=== PATIENT | female | born 1950 | race Caucasian/White ===

== ENCOUNTER 2024-06-23 10:35 | Emergency (ER) | payer MEDICARE, SELFPAY ==
--- NOTE | 2024-06-23 11:12 | XR_ITS ---
Examination: AP chest single view Technique one AP upright portable chest single view Exam date and time: June 23, 2024 1137 hours Comparison August 14, 2019 INDICATIONS: Coughing today. FINDINGS: Normal heart size Significant hyperexpansion Mild accentuation basilar bronchovascular markings No lobar pneumonia Prominent osteopenia IMPRESSION: COPD Mild basilar bronchitis pattern
[2024-06-23 11:13] VITALS: BP 114/82; PULSE 84; RESP 17; TEMP 37; O2SAT 95; BMI 20.5
--- NOTE | 2024-06-23 11:13 | PD.EDRME ---
Rapid Medical Screening Exam RME Arrival date/time: 06/23/24 10:35 74-year-old female presents to the emergency department today stating she test positive for COVID-19 patient with generalized weakness and fatigue as well as diarrhea Chief Complaint: Flu Like Symptoms Time Seen by Provider: 06/23/24 10:51
[2024-06-23 11:46] LABS: Basophils % (Auto) 1 % (0-2.5); Eosinophils % (Auto) 1 % (0-10); Hematocrit 44.4 % (36.0-46.0); Hemoglobin 14.9 g/dL (12.0-16.0); Immature Granulocytes % (Auto) 0 % (0-0); Immature Granulocytes Auto 0.01 Thou/mm3 (0.00-0.00); Lymphocytes # (Auto) 1.8 Thou/mm3 (1.0-4.8); Lymphocytes % (Auto) 42 % (10-50); Mean Corpuscular HGB Conc 33.6 g/dl (31.0-37.0); Mean Corpuscular Hemoglobin 31.4 pg (25.0-35.0); Mean Corpuscular Volume 94 fL (80-100); Monocytes # (Auto) 0.5 Thou/mm3 (0.0-0.8); Monocytes % (Auto) 12 % (0-12); Neutrophils # (Auto) 1.9 Thou/mm3 (1.8-7.7); Neutrophils % (Auto) 45 % (37-80); Nucleated Red Blood Cell % 0 /100 WBC (0); Platelet Count 170 Thou/mm3 (140-440); RDW Standard Deviation 45.1 fL (36.4-46.3); Red Blood Count 4.75 Miln/mm3 (4.00-5.20); White Blood Count 4.2 Thou/mm3 (3.6-11.0)
[2024-06-23 12:04] LABS: B-Type Natriuretic Peptide 58 pg/mL (0-100)
[2024-06-23 12:27] LABS: Alanine Aminotransferase 25 U/L (10-49); Albumin, Serum 4.6 gm/dL (3.4-4.8); Albumin/Globulin Ratio 1.8 (1.2-2.2); Alkaline Phosphatase 49 U/L (46-116); Anion Gap 10 (7-16); Aspartate Amino Transferase 11 U/L (0-34); BUN/Creatinine Ratio 13 Ratio (12-20); Bilirubin,Total 0.5 mg/dL (0.3-1.2); Blood Urea Nitrogen 18 mg/dL (9-23); Calcium 9.6 mg/dL (8.3-10.6); Calcium (Corrected) 9.6 mg/dL (8.5-10.1); Chloride 95 mMol/L (98-107); Creatinine (Component) 1.4 mg/dL (0.6-1.3); Estimated Creatinine Clearance 31.1 mL/min (>60); Globulin 2.6 gm/dL (2.3-3.5); Glucose 96 mg/dL (74-106); Lipase 89 U/L (12-53); Osmolality,Calculated 262 (275-295); Potassium 3.8 mMol/L (3.4-5.1); Sodium 130 mMol/L (136-145); Total Protein 7.2 gm/dL (5.7-8.2); eGFR 39 See Note
[2024-06-23 12:29] LABS: Troponin I 0.094 ng/mL (0.0-0.045)
--- NOTE | 2024-06-23 12:32 | EKG_ITS ---
[facility] Test Date: 2024-06-23 Pat Name: GABI PHOENIX Department: Room: - Gender: Female Global Compensation Director: : 1950 Requested By: Catrachito Luong (JULIO CESAR) Order Number: [id number] Reading MD: Catrachito Luong (FAMILY ASSISTANT) Measurements Intervals [place] Rate: 64 P: -32 WA: 161 QRS: -3 QRSD: 74 T: 63 QT: 403 QTc: 418 Interpretive Statements SINUS RHYTHM SEPTAL MYOCARDIAL INFARCTION , PROBABLY OLD [40+ ms Q WAVE IN V1/V2] Compared to ECG 01/06/2022 08:26:01 Sinus bradycardia no longer present First degree AV block no longer present Myocardial infarct finding still present /store/S0/[id number]/ecg/[id number].pdf
[2024-06-23 12:53] VITALS: BP 149/84; PULSE 62; RESP 20; TEMP 36.9; O2SAT 96
--- NOTE | 2024-06-23 13:15 | PD.EDURI ---
Upper Respiratory Inf. RME/HPI General Chief Complaint: Flu Like Symptoms Stated Complaint: PCP sent for unrelieved co vid Time Seen by Provider: 06/23/24 10:51 Arrival date/time: 06/23/24 10:35 RME / HPI RME / HPI Narrative: 74-year-old female patient with past medical history of diabetes mellitus, controlled with diet, was brought in by her son for evaluation regarding flulike symptoms. Patient went to PCP today and was sent to us for further evaluation. Patient's been having flulike symptoms, described as nonproductive cough, fever, body aches, diarrhea, nausea, vomiting, severity moderate since Wednesday. Patient denies any abdominal pain denies any headache denies any other complaints denies any ill contacts. Patient was prescribed Zithromax by PCP. Related Data Home Medications ?Medication ?Instructions ?Recorded ?Confirmed albuterol sulfate 90 mcg/actuation 2 puff inhalation Q4-6HRPRN PRN 07/14/13 09/14/19 aerosol inhaler (Proventil HFA) ASTHMA #0 puffs triamterene 75 1 tab PO QDAY ##0 07/14/13 09/14/19 mg-hydrochlorothiazide 50 mg tablet alprazolam 0.5 mg tablet 0.5 mg PO BID ##60 06/17/16 09/14/19 montelukast 10 mg tablet 10 mg PO QPM 02/21/18 09/14/19 Previous Rx's ?Medication ?Instructions ?Recorded acetaminophen 500 mg tablet 500 mg PO Q6H PRN pain #30 tabs 04/23/23 (Tylenol Extra Strength) albuterol sulfate 90 mcg/actuation 1 inh inhalation Q6H PRN shortness 06/23/24 aerosol inhaler of breath or wheezing #8.5 grams ondansetron HCl 4 mg tablet 4 mg PO TID PRN nausea and 06/23/24 vomiting 5 days #20 tabs oseltamivir 75 mg capsule (Tamiflu) 75 mg PO BID 5 days #10 caps 06/23/24 Allergies Allergy/AdvReac Type Severity Reaction Status Date / Time codeine Allergy Intermediate NAUSEA/VOMI Verified 06/23/24 10:36 TING Review of Systems Review of Systems Narrative Review of Systems: Review of system reviewed and within normal limits except mentioned in HPI ED Exam Narrative Physical exam: VITAL SIGNS: Reviewed. GENERAL APPEARANCE: Alert and interactive, follows commands, no acute distress, HEAD AND FACE: Non-traumatic. ENT: PERRL, pink conjunctivitis, eyelid no trauma, Mucous membrane dry NECK: Supple, nontender, no nuchal rigidity. CHEST: No tenderness, no crepitus, no paradoxical movement, no retractions. LUNGS: Clear, well ventilated, symmetric, no rales, no wheezing, no ronchi, no stridor, good breath sounds bilaterally. HEART: Regular rate, regular rhythm, no murmur, no gallops. ABDOMEN: Soft, positive bowel sounds, nondistended, no guarding, nontender, no rebound, no masses, RECTAL: Deferred. GENITAL: Deferred. NEUROLOGICAL: Gross motor function intact sensory function intact, Appropriate for age. MUSCULOSKELETAL: low back nontender, full range of motion. EXTREMITIES: Nontender, full range of motion. SKIN: Color pink, dry, no rash, no lacerations, no abrasions, no contusions. LYMPHATICS: Deferred. Course Quality Measures none Orders Category Date Time Status Bedside COVID-19 Antigen Test NOW Care 06/23/24 11:12 Active Bedside Influenza A&B Antigen Test NOW Care 06/23/24 11:12 Completed EKG (ED ONLY) *Do not use* NOW Care 06/23/24 12:32 Completed EKG (ED Only) Stat Exams 06/23/24 12:32 Draft XR chest 2V Stat Exams 06/23/24 11:12 Completed BNP [B-Type Natriuretic Peptide] Stat Lab 06/23/24 11:35 Completed CBC Stat Lab 06/23/24 11:35 Completed Comprehensive Metabolic Panel Stat Lab 06/23/24 11:35 Completed Lipase Stat Lab 06/23/24 11:35 Completed Troponin I Stat Lab 06/23/24 11:35 Completed Troponin I Stat Lab 06/23/24 14:51 Completed UA, C/S IF [Urinalysis, C/S if Indicated] Stat Lab 06/23/24 15:01 Completed Diphenoxylate/Atrop Sulf [Lomotil] Med 06/23/24 13:08 Discontinued 2 tab PO X1 ONE Ondansetron Odt [Zofran Odt] Med 06/23/24 13:09 Discontinued 4 mg PO X1 ONE Oseltamivir [Tamiflu] Med 06/23/24 13:08 Discontinued 75 mg PO X1 ONE Sodium Chloride 0.9% 1000 ml [Ns] 1,000 ml Med 06/23/24 13:08 Discontinued IV 999 mls/hr Vital Signs Vital signs: Vital Signs Temperature 98.6 F 06/23/24 11:13 Pulse Rate 84 06/23/24 11:13 Respiratory Rate 17 06/23/24 11:13 Blood Pressure 114/82 06/23/24 11:13 Pulse Oximetry (%) 95 06/23/24 11:13 Oxygen Delivery Method Room Air 06/23/24 11:13 Upper Respiratory Infection MDM Narrative MDM Narrative:: 74-year-old female patient with past medical history of diabetes mellitus, controlled with diet, was brought in by her son for evaluation regarding flulike symptoms. Patient went to PCP today and was sent to us for further evaluation. Patient's been having flulike symptoms, described as nonproductive cough, fever, body aches, diarrhea, nausea, vomiting, severity moderate since Wednesday. Patient denies any abdominal pain denies any headache denies any other complaints denies any ill contacts. Patient was prescribed Zithromax by PCP. Repeat troponin came back lower than earlier today. Patient received low motel, IV fluids, and Tamiflu. Chest x-ray came back unremarkable except for COPD pattern. No pneumonia noted. Results discussed with the patient and family. Prior to discharge patient verbalized her symptoms is better and she felt better than earlier. Patient data External records reviewed:: None Clinical information provided by:: none Social determinants that could affect healthcare access:: none Patient has the following chronic illnesses:: None How is presenting disease/condition affected by chronic disease/condition?: no chronic disease Evaluation data The following diagnostics were reviewed and interpreted by me:: lab results, radiology exam(s) and EKG tracing(s) Lab and/or radiology exams considered but not ordered:: None Interpretation Summary: EKG as interpreted by me shows sinus rhythm, ventricular rate of 64 beats per minute, no ST segment ovation depression noted. Chest x-ray showed COPD pattern otherwise no infiltrates no pneumonia no hemothorax noted. Patient tested positive for influenza A. Initial troponin was noted to be 0.095 after 3 hours went down to 0.085. Patient is not having any chest pain Medications / Prescriptions Medications or Prescriptions considered but not ordered:: None Medication administrations:: Medication Administration History Discontinued Medications Diphenoxylate HCl/Atropine (Diphenoxylate/Atrop Sulf 1 Tab) 2 tab PO X1 ONE Stop: 06/23/24 13:09 Last Admin: 06/23/24 14:02 Dose: 2 tab Documented By: LILI Sodium Chloride (Ns) 1,000 mls @ 999 mls/hr IV .Q1H1M ONE Stop: 06/23/24 14:08 Last Admin: 06/23/24 13:58 Dose: 999 mls/hr Documented By: LILI Ondansetron HCl (Ondansetron Odt 4 Mg Tabrap) 4 mg PO X1 ONE; Protocol Stop: 06/23/24 13:10 Last Admin: 06/23/24 14:02 Dose: 4 mg Documented By: LILI Oseltamivir Phosphate (Oseltamivir 75 Mg Capsule) 75 mg PO X1 ONE Stop: 06/23/24 13:09 Last Admin: 06/23/24 14:02 Dose: 75 mg Documented By: LILI Tamiflu, Zofran, IV fluids and Motrin Consultations Consultation(s) initiated? (list below): No Diagnosis Upper Respiratory Differential Diagnosis: upper respiratory infection, viral infection and influenza Most likely diagnosis given after review of the tests above:: Influenza Admission Indicated Admission indicated?: not indicated Explain why admission is indicated or not indicated:: Stable Admission Request Was there a request for admission?: No Disposition Plan Disposition Plan: Discharge Discharge Attestation Discharge Attestation: The patient and all family members were given an opportunity to ask questions and understood the discharge instructions. Discharge instructions specifically effects, indications for sooner follow up or return to the emergency department, and the expected course of current diagnosis. Patient condition: Stable Discharge Plan Plan Patient Disposition: HOME (Self Care) Disposition Comment: stable Prescriptions/Referrals Prescriptions/Med Rec: New oseltamivir [Tamiflu] 75 mg capsule 75 mg PO BID 5 Days Qty: 10 0RF ondansetron HCl 4 mg tablet 4 mg PO TID PRN (Reason: nausea and vomiting) 5 Days Qty: 20 0RF albuterol sulfate 90 mcg/actuation HFA aerosol inhaler 1 inh inhalation Q6H PRN (Reason: shortness of breath or wheezing) Qty: 8.5 0RF No Action triamterene-hydrochlorothiazid 75-50 mg Tablet 1 tab PO QDAY Qty: 0 albuterol sulfate [Proventil HFA] 6.7 GM HFA aerosol inhaler 2 puff Inhalation Q4-6HRPRN PRN (Reason: ASTHMA) Qty: 0 alprazolam 0.5 MG tablet 0.5 mg PO BID Qty: 60 montelukast 10 mg Tablet 10 mg PO QPM acetaminophen [Tylenol Extra Strength] 500 mg tablet 500 mg PO Q6H PRN (Reason: pain) Qty: 30 0RF Referrals: Gricel Banerjee MD [Primary Care Provider] - In 1 week Problem List Clinical Impression: Influenza Patient/Caregiver Discharge Instructions Discharge Activity: activity as tolerated Education Materials: ED Influenza (Adult) Additional Instructions: Thank you for the opportunity for serving you today. You are stable for discharged . You are advised to: Follow-up with your PCP in 1 to 2 days Return to ED for worsening of symptoms Increase oral fluids Take medication as prescribed Print Language: Eritrean Stand Alone Forms: An Award Info., Patient Portal Info Letter PA/TAMIA Supervising Physician STALIN/TAMIA Supervising Physician: MD Edinson
[2024-06-23] MEDS: SODIUM CHLORIDE 0.9% 1000 ML 1,000 ML 999 ML IV (13:58)
[2024-06-23] MEDS: DIPHENOXYLATE/ATROP SULF 1 TAB 2 TAB PO (14:02)
[2024-06-23] MEDS: ONDANSETRON ODT 4 MG TABRAP PO (14:02)
[2024-06-23] MEDS: OSELTAMIVIR 75 MG CAPSULE PO (14:02)
[2024-06-23 14:25] VITALS: BP 150/76; PULSE 62; RESP 16; TEMP 37.1; O2SAT 96
[2024-06-23 15:12] LABS: Collection Type, Urine Clean Catch
[2024-06-23 15:23] LABS: Bilirubin,Urine Negative (Negative); Blood,Urine Negative (Negative); Clarity,Urine Hazy (Clear/Hazy); Color,Urine Lt-Yellow (Lt Yel-Yel); Culture Indicated,Urine Not Indicated; Glucose, Urine Negative (Negative); Hyaline Casts,Urine < 1 /hpf (0-1); Ketones,Urine Negative (Negative); Leukocyte Esterase,Urine Negative (Negative); Nitrite,Urine Negative (Negative); Protein,Urine 1+ (Neg - Trace); RBC,Urine 3 /hpf (0-3); Squamous Epithelial Cell,Urine 5 /hpf (0-5); Urobilinogen,Urine Negative mg/dL (0.0-1.0); WBC,Urine 5 /hpf (0-5)
[2024-06-23 15:25] LABS: Troponin I 0.085 ng/mL (0.0-0.045)
[2024-06-23 16:10] VITALS: BP 129/73; PULSE 64; RESP 19; TEMP 36.9; O2SAT 96
== END 2024-06-23 16:44 | disposition home or self-care (01) ==
PROVIDERS: Nurse Practitioner Family; Nurse Practitioner Primary Care; Emergency Provider Emergency Medicine; PCP Internal Medicine
DX: J10.1 Influenza due to other identified influenza virus with other respiratory manifestations (principal); R94.31 Abnormal electrocardiogram [ECG] [EKG]; J44.9 Chronic obstructive pulmonary disease, unspecified
CPT/HCPCS: 36415; 71046; 80053; 81001; 83690; 83880; 84484; 85025; 87400; 87811; 93005; 99284; J7030; Q0162; A9270

== ENCOUNTER → 2024-08-08 | Outpatient (CLI) | payer MEDICARE, SELFPAY ==
--- NOTE | 2024-08-08 | XR_ITS ---
Examination: Breast ultrasound, unilateral, right complete Date and time of exam: August 08, 2024 0724 hrs. Indications: Patient states palpable lump right breast, no family history breast cancer, mammogram May 03, 2024 12:00 nodule 10 mm Technique: Real-time cooley scale ultrasonographic imaging performed right breast including all 4 quadrants as well as nipple retroareolar and axillary region. Findings: No cystic or solid mass Impression: BI-RADS Category 0: Incomplete: Need additional imaging evaluation Recommend right diagnostic mammography follow-up
--- NOTE | 2024-08-08 07:27 | XR_ITS ---
Examination: Diagnostic digital mammography, unilateral, right Computer aided detection 3-D breast Tomosynthesis, unilateral Date and time of exam: August 08, 2024 at 0735 hours INDICATIONS: Mammogram May 03, 2024 12:00 nodule 10 mm angular margins Technique: Nonmagnified MLO, CC views of the right breast have been obtained, reconstructed from 3-D Tomosynthesis images. R2 computer aided detection program utilized for evaluation of suspicious masses and/or abnormal calcifications. 3-D Tomosynthesis images obtained. Findings: Scattered areas of fibroglandular density Focal asymmetry remains upper outer right breast Impression: BI-RADS category 3: Probably benign findings One additional 6 month right mammogram follow-up is needed to document stability of 8 mm focal asymmetry upper outer right breast
== END | disposition home or self-care (01) ==
LOC: CDIM 07:02
PROVIDERS: PCP Internal Medicine; Referring Provider Internal Medicine; Visit Provider Internal Medicine
DX: R92.331 Mammographic heterogeneous density, right breast (principal); N64.89 Other specified disorders of breast; R92.8 Other abnormal and inconclusive findings on diagnostic imaging of breast
CPT/HCPCS: 76641; 77061; 77065; G0279

== ENCOUNTER 2024-12-01 09:40 | Day surgery (SDC) | payer MEDICARE, SELFPAY ==
[2024-12-01] VITALS (12 sets, daily range): BP systolic 117–151; BP diastolic 63–101; PULSE 50–86; RESP 10–21; TEMP 36.4–36.9; O2SAT 95–100; BMI 21.6
[2024-12-01] MEDS: SODIUM CHLORIDE 0.9% 500 ML 500 ML 20 ML IV (11:31)
[2024-12-01] MEDS: fentaNYL CIT INJ 50 mCg/ML AMP 2ML (ASD USE ONLY) IV (11:34)
[2024-12-01] MEDS: DiphenhydrAMINE INJ 50 MG/ML VIAL 25 MG IV (11:39)
[2024-12-01] MEDS: MIDAZOLAM INJ 1 MG/ML VIAL 2 ML (ASD USE ONLY) 2 MG IV (11:39)
--- NOTE | 2024-12-01 11:50 | SUR.PHASEII ---
received report and pt from DIANA Aleman. Pt asleep at this time, but arousable to tactile stimulation. vss, no distress noted at this time. IV in place, no s/s of infiltration or redness noted to site. abd soft on palpation, no drainage noted to perianal area.
--- NOTE | 2024-12-01 12:17 | SUR.PHASEII ---
pt awake, vss, no distress noted. pt tolerated 7up zero, no nausea or pain reported.
--- NOTE | 2024-12-01 12:33 | SUR.PHASEII ---
dc instructions given to pt and her son both stated verbal understanding. IV removed with cath intact, pt tolerated well. vss, pt denies any pain or nausea.
== END 2024-12-01 12:33 | disposition home or self-care (01) ==
PROVIDERS: PCP Internal Medicine; Referring Provider Specialist; Visit Provider Specialist
PROC: 0DBE8ZX Excision of Large Intestine, Via Natural or Artificial Opening Endoscopic, Diagnostic (ICD-10-PCS; CPT 45380; principal; 2024-12-01 10:00)
DX: Z12.11 Encounter for screening for malignant neoplasm of colon (principal); K64.9 Unspecified hemorrhoids; K57.30 Diverticulosis of large intestine without perforation or abscess without bleeding
CPT/HCPCS: G0121; J1200; J2250; J3010; J7040

== ENCOUNTER → 2025-02-06 | Outpatient (CLI) | payer MEDICARE, SELFPAY ==
--- NOTE | 2025-02-06 11:00 | XR_ITS ---
Examination: Diagnostic digital mammography, unilateral, right Computer aided detection 3-D breast Tomosynthesis, unilateral Date and time of exam: February 06, 2025 1107 hours INDICATIONS: Mammogram May 03, 2024 12:00 nodule 10 mm angular margins, focal asymmetry remains upper outer right breast on mammogram August 08, 2024 Technique: Nonmagnified MLO, CC views of the right breast have been obtained, reconstructed from 3-D Tomosynthesis images. R2 computer aided detection program utilized for evaluation of suspicious masses and/or abnormal calcifications. 3-D Tomosynthesis images obtained. Findings: Scattered areas of fibroglandular density. Stable nodule upper outer right breast circumscribed Impression: BI-RADS category 2: Benign findings Recommend 6 month bilateral mammography follow-up
== END | disposition home or self-care (01) ==
LOC: CDIM 10:44
PROVIDERS: PCP Internal Medicine; Referring Provider Internal Medicine; Visit Provider Internal Medicine
DX: R92.321 Mammographic fibroglandular density, right breast (principal); N63.11 Unspecified lump in the right breast, upper outer quadrant
CPT/HCPCS: 77061; 77065; G0279

== ENCOUNTER → 2025-02-09 | Outpatient (CLI) | payer MEDICARE, SELFPAY ==
[2025-02-09 08:07] LABS: Collection Type, Urine Clean Catch
[2025-02-09 08:35] LABS: Basophils # (Auto) 0.1 Thou/mm3 (0.0-0.2); Basophils % (Auto) 1 % (0-2.5); Eosinophils # (Auto) 0.3 Thou/mm3 (0.0-0.5); Eosinophils % (Auto) 4 % (0-10); Hematocrit 41.8 % (36.0-46.0); Hemoglobin 14.4 g/dL (12.0-16.0); Immature Granulocytes Auto 0.02 Thou/mm3 (0.00-0.00); Lymphocytes # (Auto) 1.6 Thou/mm3 (1.0-4.8); Lymphocytes % (Auto) 26 % (10-50); Mean Corpuscular HGB Conc 34.4 g/dl (31.0-37.0); Mean Corpuscular Hemoglobin 31.7 pg (25.0-35.0); Mean Corpuscular Volume 92 fL (80-100); Monocytes # (Auto) 0.5 Thou/mm3 (0.0-0.8); Monocytes % (Auto) 8 % (0-12); Neutrophils # (Auto) 3.6 Thou/mm3 (1.8-7.7); Neutrophils % (Auto) 61 % (37-80); Nucleated Red Blood Cell # 0.00 Thou/mm3 (0.00-0.00); Nucleated Red Blood Cell % 0 /100 WBC (0); Platelet Count 239 Thou/mm3 (140-440); RDW Standard Deviation 44.0 fL (36.4-46.3); Red Blood Count 4.54 Miln/mm3 (4.00-5.20); White Blood Count 6.0 Thou/mm3 (3.6-11.0)
[2025-02-09 08:40] LABS: Bacteria,Urine Rare; Bilirubin,Urine Negative (Negative); Blood,Urine Negative (Negative); Clarity,Urine Clear (Clear/Hazy); Color,Urine Lt-Yellow (Lt Yel-Yel); Culture Indicated,Urine Not Indicated; Glucose, Urine Negative (Negative); Hyaline Casts,Urine < 1 /hpf (0-1); Ketones,Urine Negative (Negative); Leukocyte Esterase,Urine Positive (Negative); Nitrite,Urine Negative (Negative); PH,Urine 6.5 (5.0-7.0); Protein,Urine Negative (Neg - Trace); RBC,Urine 2 /hpf (0-3); Specific Gravity,Urine 1.011 (1.001-1.035); Squamous Epithelial Cell,Urine 2 /hpf (0-5); Urobilinogen,Urine Negative mg/dL (0.0-1.0); WBC,Urine 2 /hpf (0-5)
[2025-02-09 08:44] LABS: Glucose Estimated Average 134 mg/dL (80-131); Hemoglobin A1C 6.3 % Hgb (4.8-6.0)
[2025-02-09 09:07] LABS: Creatinine MALB Rnd Ur 54 mg/dL (30-125); Microalbumin, Random Urine < 3 mg/L (0-300)
[2025-02-09 09:14] LABS: Alanine Aminotransferase 15 U/L (10-49); Albumin, Serum 4.3 gm/dL (3.4-4.8); Albumin/Globulin Ratio 1.8 (1.2-2.2); Alkaline Phosphatase 46 U/L (46-116); Anion Gap 11 (7-16); Aspartate Amino Transferase 21 U/L (0-34); BUN/Creatinine Ratio 15 Ratio (12-20); Bilirubin,Direct 0.2 mg/dL (0.0-0.3); Bilirubin,Total 0.6 mg/dL (0.3-1.2); Blood Urea Nitrogen 16 mg/dL (9-23); Calcium 10.1 mg/dL (8.3-10.6); Calcium (Corrected) 10.1 mg/dL (8.5-10.1); Carbon Dioxide 27.4 mMol/L (20.0-31.0); Cardiac Risk Estimate 3.6 RATIO (3.7-5.6); Chloride 102 mMol/L (98-107); Cholesterol 198 mg/dL (132-200); Creatinine (Component) 1.1 mg/dL (0.6-1.3); Free T4 (Free Thyroxine) 1.21 ng/dL (0.89-1.76); Globulin 2.4 gm/dL (2.3-3.5); Glucose 147 mg/dL (74-106); HDL Cholesterol 55 mg/dL (40-60); LDL Cholesterol,Calculated 126 mg/dL (0-130); Osmolality,Calculated 283 (275-295); Potassium 5.0 mMol/L (3.4-5.1); Sodium 140 mMol/L (136-145); Thyroid Stimulating Hormone 2.75 uIU/mL (0.55-4.78); Total Protein 6.7 gm/dL (5.7-8.2); Triglycerides 83 mg/dL (30-150); eGFR 53 See Note
== END | disposition home or self-care (01) ==
PROVIDERS: PCP Internal Medicine; Referring Provider Internal Medicine Cardiovascular Disease; Visit Provider Internal Medicine Cardiovascular Disease
DX: E11.65 Type 2 diabetes mellitus with hyperglycemia (principal); I10 Essential (primary) hypertension; E78.5 Hyperlipidemia, unspecified; I49.9 Cardiac arrhythmia, unspecified
CPT/HCPCS: 36415; 80053; 80061; 80076; 81001; 82043; 82248; 82570; 83036; 84439; 84443; 85025

== ENCOUNTER → 2025-02-12 | Outpatient (CLI) | payer MEDICARE, SELFPAY ==
[2025-02-12 13:00] LABS: OBS Card Expiration Date 2028-02-08; OBS Performed By LAB; OBS QC OK? Yes
[2025-02-12 13:47] LABS: Occult Blood, Stool Negative (Negative); Occult Blood, Stool #2 Negative (Negative); Occult Blood, Stool #3 Negative (Negative)
[2025-02-12 13:48] LABS: OBS Developer Expiration Date 123126; OBS Developer Lot # 1-24 551749
== END | disposition home or self-care (01) ==
LOC: SLDO 12:51
PROVIDERS: PCP Internal Medicine; Referring Provider Internal Medicine; Visit Provider Internal Medicine
DX: E11.65 Type 2 diabetes mellitus with hyperglycemia (principal)
CPT/HCPCS: 82270